=== PATIENT | female | born 1995 | race American Indian/Alaskan Native ===

== ENCOUNTER 2019-07-22 08:53 | Emergency (ER) | payer OTHER ==
[2019-07-22 09:12] VITALS: BP 134/70
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
[2019-07-22] MEDS ORDERED: IBUPROFEN 800 MG TAB PO ONE (10:36)
[2019-07-22] MEDS ORDERED: HYDROcodone/ACETAMINOPHEN 5-325 MG TAB PO ONE (10:36)
== END 2019-07-22 11:02 | disposition home or self-care (01) ==
LOC: ED 08:53
DX: S20.219A Contusion of unspecified front wall of thorax, initial encounter (principal); M54.9 Dorsalgia, unspecified; V49.49XA Driver injured in collision with other motor vehicles in traffic accident, initial encounter; Y93.89 Activity, other specified; Y92.488 Other paved roadways as the place of occurrence of the external cause; Y99.8 Other external cause status